=== PATIENT | male | born 1950 | race American Indian/Alaskan Native ===

== ENCOUNTER 2016-11-05 14:19 | Outpatient (CLI) | payer MEDICARE ==
--- NOTE | 2016-11-06 08:57 | Mammography Report ---
BONE DEXA:11/05/16 14:19:00 CLINICAL: 66-year-old male with vitamin deficiency. No comparison. TECHNIQUE: Two site bone DEXA performed on an Hologic scanner. FINDINGS: The average BMD of the lumbar spine L1-L4 is 0.672g/cm squared with a T-score of -3.8 and a Z-score of -3.9. The average BMD of the left hip is 0.579g/cm squared with a T-score of -3.0 and a Z-score of -2.5. IMPRESSION: WHO classification: Osteoporosis with high fracture risk based on spine and left hip measurements. RECOMMENDATION: Clinical correlation and routine screening. DEFINITIONS: BMD = Bone Mineral Density T-score = BMD related to mean peak bone mass of young adult (mean expressed in Standard Deviation) Z-score = Age matched BMD expressed in SD World Health Organization (WHO) Diagnostic Criteria Normal T-score > -1 SD Osteopenia T-score between -1 and -2.4 SD Osteoporosis T-score -2.5 SD or below NOTE: BMD is not the only risk factor for fracture. One should also consider factors such as the patient's age, risk of falling, previous osteoporotic fracture, family history of osteoporotic fractures, current smoker, and low body weight. Z-scores are not calculated if >80 years of age.
== END 2016-11-05 14:20 | disposition home or self-care (01) ==
LOC: MAMMO 14:19
PROVIDERS: ATTEND Family Medicine
DX: M81.0 Age-related osteoporosis without current pathological fracture (principal); E56.9 Vitamin deficiency, unspecified
CPT/HCPCS: 77080